=== PATIENT | male | born 1975 | race Caucasian/White ===

== ENCOUNTER 2016-09-19 12:24 | Emergency (ER) | payer OTHER ==
[~2016-09-19] VITALS: Ht 175.3 cm; Wt 68.1 kg
[2016-09-19 13:14] LABS: HEMATOCRIT 43.8 % (38.0-50.0); MCH 31.1 PG (29.0-34.0); MCHC 34.9 G/DL (30.0-36.0); PLATELET COUNT 178 K/uL (156-360); RBC DIS.WIDTH-CV 11.7 % (11.8-14.6); RBC DIS.WIDTH-SD 38.2 % (39-53); RED BLOOD COUNT 4.92 M/uL (4.00-5.50); WHITE BLOOD COUNT 6.1 K/uL (4.1-10.2)
[2016-09-19 13:23] LABS: CHLORIDE 102 mEq/L (99-109); POTASSIUM 3.5 mEq/L (3.7-5.4); SODIUM 137 mEq/L (136-147)
[2016-09-19 13:25] LABS: GLUCOSE 105 mg/dL (70-99)
[2016-09-19 13:26] LABS: ANION GAP 9 MEQ/L (2-14)
[2016-09-19 13:28] LABS: SERUM ETHYL ALCOHOL < 10 mg/dL
[2016-09-19 13:30] LABS: UREA NITROGEN (BUN) 11 mg/dL (9-23)
[2016-09-19 13:36] LABS: GFR ESTIMATE (CALCULATED) > 59 mL/min/
[2016-09-19 17:27] VITALS: BP 121/68
== END 2016-09-19 17:56 | disposition home or self-care (01) ==
LOC: EME 12:24
DX: F32.9 Major depressive disorder, single episode, unspecified (principal); R45.851 Suicidal ideations; S50.812A Abrasion of left forearm, initial encounter; S50.811A Abrasion of right forearm, initial encounter; X78.8XXA Intentional self-harm by other sharp object, initial encounter; F41.9 Anxiety disorder, unspecified; F63.81 Intermittent explosive disorder
CPT/HCPCS: 80048; 85027; 90839; 99281; 99284; G0480